=== PATIENT | male | born 2005 | race Two or more races ===

== ENCOUNTER 2025-06-04 22:55 | Emergency (ER) | payer MEDICAID, OTHER ==
[~2025-06-04] VITALS: Ht 177.8 cm; Wt 76.7 kg
[2025-06-04 23:14] VITALS: BP 135/91; PULSE 100; RESP 16; TEMP 98.3; O2SAT 98
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
[2025-06-05] MEDS ORDERED: CYCL-837 PO (01:35)
[2025-06-05] MEDS ORDERED: IBUP-1454 PO (01:35)
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
== END 2025-06-05 02:48 | disposition home or self-care (01) ==
LOC: ER 22:55
DX: S60.211A Contusion of right wrist, initial encounter (principal); S30.1XXA Contusion of abdominal wall, initial encounter; S09.8XXA Other specified injuries of head, initial encounter; Y08.89XA Assault by other specified means, initial encounter; Y93.39 Activity, other involving climbing, rappelling and jumping off; Y92.89 Other specified places as the place of occurrence of the external cause; Y99.8 Other external cause status
CPT/HCPCS: 70450; 72125; 73110; 74176